=== PATIENT | female | born 1985 | race Caucasian/White ===

== ENCOUNTER → 2016-08-20 | Outpatient (REF) | payer OTHER | LOC: M LAB REF 14:44 | PROVIDERS: ATTEND Physician Assistant | DX: J11.1 Influenza due to unidentified influenza virus with other respiratory manifestations (principal) ==

== ENCOUNTER 2018-11-26 22:29 | Emergency (ER) | payer SELFPAY ==
[~2018-11-26] VITALS: Ht 154.9 cm; Wt 81.8 kg
[2018-11-26] MEDS ORDERED: IBUP80TA PO (22:32)
[2018-11-27 00:02] VITALS: BP 124/78
--- NOTE | 2018-11-27 08:12 | REP ---
Right ankle four views: Comparison is 07/08/2015. There is no fracture or dislocation. There is soft tissue edema laterally. The mortise is symmetric. Mineralization is normal. There are no calcifications or foreign bodies. Impression: Soft tissue edema laterally. No fracture. Electronically Signed by Sean Lozoya MD 11/27/2018 08:04 A
== END 2018-11-27 00:04 | disposition home or self-care (01) ==
LOC: M ED 22:29
DX: S93.401A Sprain of unspecified ligament of right ankle, initial encounter (principal); X58.XXXA Exposure to other specified factors, initial encounter; Y92.89 Other specified places as the place of occurrence of the external cause; Y93.68 Activity, volleyball (beach) (court); Z88.7 Allergy status to serum and vaccine; F17.210 Nicotine dependence, cigarettes, uncomplicated

== ENCOUNTER 2020-05-10 03:34 | Emergency (ER) | payer OTHER, SELFPAY ==
[~2020-05-10] VITALS: Ht 154.9 cm; Wt 89.2 kg
[~2020-05-10 03:34] MED LIST: IBUP80TA PO
[2020-05-10 05:03] LABS: BASO % 0.5 % (0.0-1.0); EOS # 0.1 10^3/uL (0.0-0.5); EOS % 0.6 % (0.0-3.0); HEMATOCRIT 41.4 % (36.0-47.0); HEMOGLOBIN 13.9 g/dl (12.0-15.5); LYMPH # 1.9 10^3/uL (1.5-5.0); LYMPH % 23.4 % (24.0-44.0); MEAN CORPUSCULAR HGB CONC 33.6 g/dl (32.0-36.5); MEAN CORPUSCULAR VOLUME 98.3 fl (80.0-96.0); MONO # 0.5 10^3/uL (0.0-0.8); MONO % 5.9 % (0.0-5.0); NEUTROPHILS # 5.6 10^3/uL (1.5-8.5); NEUTROPHILS % 69.2 % (36.0-66.0); PLATELET COUNT, AUTOMATED 281 10^3/uL (150-450); RED BLOOD COUNT 4.21 10^6/uL (4.00-5.40); WHITE BLOOD COUNT 8.1 10^3/uL (4.0-10.0)
[2020-05-10] MEDS ORDERED: NS 1,000 ML IV ONE (05:15)
[2020-05-10] MEDS ORDERED: ALPRAZolam 0.5 MG TAB PO ONE (05:15)
[2020-05-10 05:26] LABS: ALBUMIN 3.9 GM/DL (3.2-5.2); ALT/SGPT 45 U/L (12-78); BILIRUBIN,TOTAL 0.7 MG/DL (0.2-1.0); BLOOD UREA NITROGEN 10 MG/DL (7-18); CALCIUM LEVEL 8.8 MG/DL (8.5-10.1); CARBON DIOXIDE LEVEL 24 MEQ/L (21-32); CHLORIDE LEVEL 108 MEQ/L (98-107); CREATININE FOR GFR 0.96 MG/DL (0.55-1.30); GLOMERULAR FILTRATION RATE > 60.0 (>60); GLUCOSE, FASTING 99 MG/DL (70-100); POTASSIUM SERUM 3.7 MEQ/L (3.5-5.1); SODIUM LEVEL 139 MEQ/L (136-145); TOTAL PROTEIN 7.2 GM/DL (6.4-8.2)
--- NOTE | 2020-05-10 05:35 | REPVR ---
PROCEDURE INFORMATION: Exam: XR Chest, 1 View Exam date and time: 05/10/2020 5:13 AM Age: 35 years old Clinical indication: Other: Chest tightness TECHNIQUE: Imaging protocol: XR of the chest Views: 1 view. COMPARISON: No relevant prior studies available. FINDINGS: Lungs: Unremarkable. No consolidation. Pleural space: Unremarkable. No pleural effusion. No pneumothorax. Heart/Mediastinum: Unremarkable. No cardiomegaly. Bones/joints: Unremarkable. IMPRESSION: No acute findings. Electronically signed by: Elliott Moreau On 05/10/2020 05:35:54 AM
[2020-05-10 05:41] LABS: APPEARANCE, URINE CLEAR (CLEAR); BACTERIA, URINE AUTO NEGATIVE (NEGATIVE); BILIRUBIN, URINE AUTO NEGATIVE (NEGATIVE); BLOOD, URINE BLOOD 1+ (NEGATIVE); COLOR, URINE STRAW (YELLOW); GLUCOSE, URINE (UA) AUTO NEGATIVE (NEGATIVE); KETONE, URINE AUTO TRACE mg/dL (NEGATIVE); LEUKOCYTE ESTERASE, URINE AUTO NEGATIVE (NEGATIVE); NITRITE, URINE AUTO NEGATIVE (NEGATIVE); PROTEIN, URINE AUTO NEGATIVE (NEGATIVE); RBC, URINE AUTO 2 /HPF (0-3); SPECIFIC GRAVITY URINE AUTO 1.005 (1.002-1.035); SQUAMOUS EPITHELIAL CELL UR AU 0 /HPF (0-6); UROBILINOGEN, URINE AUTO 0.2 mg/dL (0.0-2.0); WBC, URINE AUTO 0 /HPF (0-3)
--- NOTE | 2020-05-10 05:49 | ECGEPIP ---
[facility] - ED Test Date: 2020-05-10 Pat Name: MEG ADEN Department: Room: - Gender: Female Pediatric Medical Assistant: MARKO : 1985 Requested By: DONAL LAY Order Number: [id number] Reading MD: Pedro Wiseman Measurements Intervals [place] Rate: 74 P: 46 LA: 171 QRS: 38 QRSD: 101 T: 21 QT: 421 QTc: 469 Interpretive Statements SINUS RHYTHM POSSIBLE INCOMPLETE RIGHT BUNDLE BRANCH BLOCK POOR R WAVE PROGRESSION NO PRIORS FOR COMPARISON Electronically Signed on 05-10-2020 5:49:15 EST by Pedro Wiseman
[2020-05-10 06:00] LABS: AMPHETAMINES LEVEL URINE NEGATIVE (NEGATIVE); BARBITURATES URINE NEGATIVE (NEGATIVE); BENZODIAZEPINES URINE NEGATIVE (NEGATIVE); CANNABINOIDS URINE NEGATIVE (NEGATIVE); COCAINE METABOLITE URINE NEGATIVE (NEGATIVE); METHADONE URINE NEGATIVE (NEGATIVE); OPIATES URINE NEGATIVE (NEGATIVE); PHENCYCLIDINE URINE NEGATIVE (NEGATIVE)
[2020-05-10] MEDS ORDERED: HYDR-3363 PO (07:09)
[2020-05-10] MEDS ORDERED: IBUP-1022 PO (07:09)
[2020-05-10 14:30] VITALS: BP 136/70
== END 2020-05-10 07:50 | disposition home or self-care (01) ==
LOC: M ED 03:34
DX: F41.0 Panic disorder [episodic paroxysmal anxiety] (principal); R51.9 Headache, unspecified; Z88.7 Allergy status to serum and vaccine; Z91.048 Other nonmedicinal substance allergy status

== ENCOUNTER 2022-04-09 08:08 | Inpatient (IN) | payer OTHER, SELFPAY ==
[~2022-04-09] VITALS: Ht 154.9 cm; Wt 85.2 kg
[~2022-04-09 08:08] MED LIST changes: +HYDR-3363 PO; +IBUP-1022 PO
[2022-04-09 08:46] LABS: BASO # 0.1 10^3/uL (0.0-0.2); BASO % 0.5 % (0.0-1.0); EOS # 0.2 10^3/uL (0.0-0.5); EOS % 1.7 % (0.0-3.0); HEMATOCRIT 42.4 % (36.0-47.0); HEMOGLOBIN 14.6 g/dl (12.0-15.5); LYMPH # 1.3 10^3/uL (1.5-5.0); LYMPH % 12.5 % (24.0-44.0); MEAN CORPUSCULAR HEMOGLOBIN 36.5 pg (27.0-33.0); MEAN CORPUSCULAR HGB CONC 34.4 g/dl (32.0-36.5); MONO # 0.7 10^3/uL (0.0-0.8); MONO % 6.6 % (2.0-8.0); NEUTROPHILS # 8.1 10^3/uL (1.5-8.5); NEUTROPHILS % 78.3 % (36.0-66.0); PLATELET COUNT, AUTOMATED 122 10^3/uL (150-450); WHITE BLOOD COUNT 10.3 10^3/uL (4.0-10.0)
[2022-04-09 09:12] LABS: ALBUMIN 4.1 GM/DL (3.2-5.2); ALT/SGPT 135 U/L (12-78); BILIRUBIN,DIRECT 0.7 MG/DL (0.0-0.2); BILIRUBIN,TOTAL 1.8 MG/DL (0.2-1.0); BLOOD UREA NITROGEN 8 MG/DL (7-18); CALCIUM LEVEL 9.3 MG/DL (8.5-10.1); CARBON DIOXIDE LEVEL 21 MEQ/L (21-32); CHLORIDE LEVEL 95 MEQ/L (98-107); CREATININE FOR GFR 0.99 MG/DL (0.55-1.30); GLOMERULAR FILTRATION RATE > 60.0 (>60); GLUCOSE, FASTING 100 MG/DL (70-100); POTASSIUM SERUM 3.5 MEQ/L (3.5-5.1); SODIUM LEVEL 131 MEQ/L (136-145)
[2022-04-09] MEDS ORDERED: ONDANSETRON 4MG ORAL DISINTEGRATING TAB PO ONE (10:55)
[2022-04-09] MEDS ORDERED: ACETAMINOPHEN 500 MG TAB PO ONE ×2 (10:55→11:35)
[2022-04-09] MEDS ORDERED: NS 1,000 ML IV ONE (11:15)
[2022-04-09] MEDS ORDERED: ONDANSETRON 4MG 2ML VIAL IV ONE (11:15)
[2022-04-09 12:13] LABS: HCG, SERUM QUALITATIVE NEGATIVE (NEGATIVE)
[2022-04-09 12:14] LABS: CK-MB VALUE MASS < 1.0 NG/ML (<3.6)
[2022-04-09] MEDS ORDERED: KETOROLAC 30 MG/ML 1ML VIAL IV ONE (12:55)
[2022-04-09 13:24] LABS: LIPASE 13519 U/L (73-393)
[2022-04-09] MEDS ORDERED: NS 1,000 ML IV SCH ×2 (14:00→17:00)
[2022-04-09] MEDS ORDERED: MORPHINE 4 MG/ML 1ML VIAL/SYRINGE IV PRN (14:00)
[2022-04-09 14:02] LABS: RSV AMPLIFICATION NEGATIVE (NEGATIVE)
[2022-04-09] MEDS ORDERED: PANTOPRAZOLE 40MG VIAL IV ONE (14:40)
[2022-04-09] MEDS ORDERED: GLUCOSE 4GM CHEW TABLET PO PRN (14:40)
[2022-04-09] MEDS ORDERED: NS 2,000 ML IV ONE (14:40)
[2022-04-09] MEDS ORDERED: DEXTROSE 50% 50 ML SYRINGE IV PRN (14:40)
[2022-04-09] MEDS ORDERED: GLUCAGON INJ 1MG VIAL SC PRN (14:40)
[2022-04-09] MEDS ORDERED: MOM 30ML SUSPENSION UDC PO PRN (14:45)
[2022-04-09] MEDS ORDERED: SENOKOT S TAB PO PRN (14:45)
[2022-04-09] MEDS ORDERED: BISACODYL 10 MG SUPP PR PRN (14:45)
[2022-04-09] MEDS ORDERED: HOME MED LIST COMPLETE! XX SCH (14:55)
[2022-04-09 15:23] LABS: CHOLESTEROL LEVEL 237 MG/DL (<200); CHOLESTEROL RISK RATIO 1.549 (<5); HDL CHOLESTEROL 153 MG/DL (>40); NON-HDL-C 84 MG/DL; TRIGLYCERIDES LEVEL 84 MG/DL (<150)
[2022-04-09 15:27] LABS: LDL CHOLESTEROL 67.2 MG/DL (<100)
[2022-04-09 15:29] LABS: MONO SCRN NEGATIVE (NEGATIVE)
[2022-04-09] MEDS: ENOXAPARIN 40MG/0.4ML SYRINGE (J1650 PER 10MG) SC SCH (15:40)
[2022-04-09 15:51] LABS: HEPATITIS B SURFACE ANTIGEN NEGATIVE (NEGATIVE)
[2022-04-09 16:15] VITALS: BP 129/89
[2022-04-09 16:19] LABS: HEPATITIS B CORE ANTIBODY IGM NEGATIVE (NEGATIVE); HEPATITIS C VIRUS ABY INDEX < 0.0 INDEX (<0.8)
[2022-04-09 16:39] LABS: CPK CREATINE PHOSPHOKINASE 194 U/L (26-192); MB/CK RELATIVE INDEX 0.51 (< OR =4)
[2022-04-09] MEDS ORDERED: PROMETHAZINE 25MG/ML 1ML VIAL IV ONE ×2 (16:40→21:00)
[2022-04-09] MEDS ORDERED: HYDROMORPHONE HCL 0.5 MG/ 0.5 ML SYRINGE (J1170 PER 1) IV ONE ×2 (17:20→22:00)
[2022-04-09] MEDS: ONDANSETRON 4MG 2ML VIAL IV PRN (17:32)
[2022-04-09] MEDS ORDERED: KETOROLAC 30 MG/ML 1ML VIAL IV SCH ×2 (18:00→19:00)
[2022-04-09] MEDS: KETOROLAC 30 MG/ML 1ML VIAL IV SCH (18:29)
[2022-04-09] MEDS ORDERED: KETOROLAC 30 MG/ML 1ML VIAL IV PRN (19:00)
[2022-04-09] MEDS ORDERED: DOCUSATE SODIUM 100MG CAPSULE PO SCH (21:00)
[2022-04-09 21:21] VITALS: BP 135/90
[2022-04-09] MEDS: D5W/0.45% SODIUM CHLORIDE 1,000 ML IV SCH (22:23)
[2022-04-09 22:44] LABS: AMPHETAMINES LEVEL URINE NEGATIVE (NEGATIVE); BARBITURATES URINE NEGATIVE (NEGATIVE); BENZODIAZEPINES URINE NEGATIVE (NEGATIVE); CANNABINOIDS URINE NEGATIVE (NEGATIVE); COCAINE METABOLITE URINE NEGATIVE (NEGATIVE); METHADONE URINE NEGATIVE (NEGATIVE); OPIATES URINE NEGATIVE (NEGATIVE); PHENCYCLIDINE URINE NEGATIVE (NEGATIVE)
[2022-04-10] MEDS: ONDANSETRON 4MG 2ML VIAL IV PRN (01:54)
[2022-04-10] MEDS: KETOROLAC 30 MG/ML 1ML VIAL IV SCH ×4 (02:04→18:05)
[2022-04-10] MEDS ORDERED: HYDROMORPHONE HCL 0.5 MG/ 0.5 ML SYRINGE (J1170 PER 1) IV ONE (03:00)
[2022-04-10 05:39] VITALS: BP 131/97
[2022-04-10 07:26] LABS: HEMATOCRIT 39.4 % (36.0-47.0)
[2022-04-10 07:30] LABS: HEMOGLOBIN 13.7 g/dl (12.0-15.5); MEAN CORPUSCULAR HEMOGLOBIN 36.5 pg (27.0-33.0); MEAN CORPUSCULAR HGB CONC 34.3 g/dl (32.0-36.5); MEAN CORPUSCULAR VOLUME 106.7 fl (80.0-96.0); RED BLOOD COUNT 3.75 10^6/uL (4.00-5.40); WHITE BLOOD COUNT 9.4 10^3/uL (4.0-10.0)
[2022-04-10 08:03] LABS: ALBUMIN 2.9 GM/DL (3.2-5.2); BILIRUBIN,TOTAL 1.2 MG/DL (0.2-1.0); CALCIUM LEVEL 7.2 MG/DL (8.5-10.1); CREATININE FOR GFR 1.14 MG/DL (0.55-1.30); GLOMERULAR FILTRATION RATE 57.1 (>60); POTASSIUM SERUM 4.2 MEQ/L (3.5-5.1); TOTAL PROTEIN 5.7 GM/DL (6.4-8.2)
[2022-04-10 08:32] LABS: FOLATE 4.4 NG/ML (>5.4)
[2022-04-10] MEDS: PANTOPRAZOLE 40MG VIAL IV SCH (09:00)
[2022-04-10] MEDS ORDERED: CALCIUM GLUCONATE 1,000 MG in D5W MINI-BAG PLUS 100 ML IV ONE (09:00)
[2022-04-10] MEDS: ENOXAPARIN 40MG/0.4ML SYRINGE (J1650 PER 10MG) SC SCH (09:00)
[2022-04-10] MEDS: D5W/0.45% SODIUM CHLORIDE 1,000 ML IV SCH ×2 (09:01→19:23)
[2022-04-10] MEDS ORDERED: PROMETHAZINE 25MG/ML 1ML VIAL IV PRN (11:20)
[2022-04-10 14:00] VITALS: BP 128/94
[2022-04-10 19:43] VITALS: BP 128/93
[2022-04-10] MEDS: HYDROMORPHONE HCL 0.5 MG/ 0.5 ML SYRINGE (J1170 PER 1) IV PRN (22:24)
[2022-04-11] MEDS: KETOROLAC 30 MG/ML 1ML VIAL IV SCH ×4 (00:56→22:25)
[2022-04-11 05:02] VITALS: BP 127/83
[2022-04-11] MEDS: D5W/0.45% SODIUM CHLORIDE 1,000 ML IV SCH (06:13)
[2022-04-11 07:22] LABS: HEMATOCRIT 36.1 % (36.0-47.0); HEMOGLOBIN 12.3 g/dl (12.0-15.5); MEAN CORPUSCULAR HEMOGLOBIN 36.2 pg (27.0-33.0); MEAN CORPUSCULAR HGB CONC 34.1 g/dl (32.0-36.5); MEAN CORPUSCULAR VOLUME 106.2 fl (80.0-96.0); WHITE BLOOD COUNT 8.7 10^3/uL (4.0-10.0)
[2022-04-11 07:23] LABS: PLATELET COUNT, AUTOMATED 83 10^3/uL (150-450)
[2022-04-11 08:05] LABS: ALBUMIN 2.6 GM/DL (3.2-5.2); ALT/SGPT 52 U/L (12-78); BLOOD UREA NITROGEN 7 MG/DL (7-18); CALCIUM LEVEL 6.9 MG/DL (8.5-10.1); CARBON DIOXIDE LEVEL 22 MEQ/L (21-32); CHLORIDE LEVEL 103 MEQ/L (98-107); CREATININE FOR GFR 0.76 MG/DL (0.55-1.30); GLOMERULAR FILTRATION RATE > 60.0 (>60); GLUCOSE, FASTING 140 MG/DL (70-100); POTASSIUM SERUM 3.1 MEQ/L (3.5-5.1); SODIUM LEVEL 134 MEQ/L (136-145); TOTAL PROTEIN 5.4 GM/DL (6.4-8.2)
[2022-04-11] MEDS ORDERED: POTASSIUM CHLORIDE 10MEQ SR TABLET PO ONE (08:10)
[2022-04-11] MEDS ORDERED: CALCIUM GLUCONATE 1,000 MG in D5W MINI-BAG PLUS 100 ML IV ONE ×2 (08:15→11:15)
[2022-04-11 08:32] VITALS: BP 130/85
[2022-04-11] MEDS: PANTOPRAZOLE 40MG VIAL IV SCH (08:55)
[2022-04-11] MEDS: ACETAMINOPHEN TAB 650MG DOSE (2X325MG) PO PRN (08:57)
[2022-04-11 09:11] LABS: ANTINUCLEAR ANTIBODIES DIRECT Negative (Negative)
[2022-04-11] MEDS: LR 1,000 ML IV SCH ×2 (09:14→16:30)
[2022-04-11] MEDS: HYDROMORPHONE HCL 0.5 MG/ 0.5 ML SYRINGE (J1170 PER 1) IV PRN ×2 (09:38→18:10)
[2022-04-11 09:41] LABS: LIPASE 2795 U/L (73-393)
[2022-04-11 14:00] VITALS: BP 119/78
[2022-04-11 15:57] LABS: BLOOD UREA NITROGEN 7 MG/DL (7-18); CALCIUM LEVEL 7.8 MG/DL (8.5-10.1); CARBON DIOXIDE LEVEL 21 MEQ/L (21-32); CHLORIDE LEVEL 103 MEQ/L (98-107); CREATININE FOR GFR 0.79 MG/DL (0.55-1.30); GLOMERULAR FILTRATION RATE > 60.0 (>60); GLUCOSE, FASTING 121 MG/DL (70-100); POTASSIUM SERUM 3.5 MEQ/L (3.5-5.1); SODIUM LEVEL 133 MEQ/L (136-145)
[2022-04-11 19:18] VITALS: BP 126/89
[2022-04-12] MEDS: LR 1,000 ML IV SCH ×3 (00:18→11:26)
[2022-04-12] MEDS ORDERED: SIMETHICONE 80MG CHEW TAB PO ONE (01:00)
[2022-04-12 05:10] VITALS: BP 144/102
[2022-04-12] MEDS: KETOROLAC 30 MG/ML 1ML VIAL IV SCH (06:01)
[2022-04-12 06:07] LABS: HEMATOCRIT 34.6 % (36.0-47.0); HEMOGLOBIN 11.9 g/dl (12.0-15.5); MEAN CORPUSCULAR HEMOGLOBIN 36.4 pg (27.0-33.0); MEAN CORPUSCULAR HGB CONC 34.4 g/dl (32.0-36.5); MEAN CORPUSCULAR VOLUME 105.8 fl (80.0-96.0); PLATELET COUNT, AUTOMATED 108 10^3/uL (150-450); RED BLOOD COUNT 3.27 10^6/uL (4.00-5.40); WHITE BLOOD COUNT 9.7 10^3/uL (4.0-10.0)
[2022-04-12 06:57] VITALS: BP 137/98
[2022-04-12 07:01] LABS: ALBUMIN 2.5 GM/DL (3.2-5.2); ALT/SGPT 44 U/L (12-78); BLOOD UREA NITROGEN 6 MG/DL (7-18); CALCIUM LEVEL 7.2 MG/DL (8.5-10.1); CARBON DIOXIDE LEVEL 23 MEQ/L (21-32); CHLORIDE LEVEL 104 MEQ/L (98-107); CREATININE FOR GFR 0.72 MG/DL (0.55-1.30); GLOMERULAR FILTRATION RATE > 60.0 (>60); GLUCOSE, FASTING 113 MG/DL (70-100); LIPASE 1207 U/L (73-393); POTASSIUM SERUM 3.3 MEQ/L (3.5-5.1); SODIUM LEVEL 135 MEQ/L (136-145); TOTAL PROTEIN 5.6 GM/DL (6.4-8.2)
[2022-04-12 07:35] VITALS: BP 138/90
[2022-04-12] MEDS ORDERED: CALCIUM GLUCONATE 1,000 MG in D5W MINI-BAG PLUS 100 ML IV ONE (08:00)
[2022-04-12] MEDS ORDERED: POTASSIUM CHLORIDE 10MEQ SR TABLET PO ONE (08:00)
[2022-04-12] MEDS: ACETAMINOPHEN TAB 650MG DOSE (2X325MG) PO PRN (08:23)
[2022-04-12] MEDS: PANTOPRAZOLE 40MG VIAL IV SCH (08:24)
[2022-04-12] MEDS ORDERED: SIMETHICONE 80MG CHEW TAB PO PRN (09:10)
[2022-04-12] MEDS ORDERED: KETOROLAC 30 MG/ML 1ML VIAL IV PRN (09:10)
[2022-04-12 13:25] VITALS: BP 138/96
[2022-04-12] MEDS ORDERED: PANT40TA29 PO (13:43)
[2022-04-12] MEDS ORDERED: OXYC-517 PO (13:43)
[2022-04-12] MEDS ORDERED: ACET-897 PO (13:43)
[2022-04-12] MEDS ORDERED: SIME80TA16 PO (13:43)
[2022-04-12] MEDS ORDERED: IBUP1TAB6 PO (13:43)
[2022-04-13 01:50] LABS: PLATELET COUNT, AUTOMATED 93 10^3/uL (150-450)
== END 2022-04-12 14:50 | disposition home or self-care (01) | DRG 282 ==
LOC: M ED 08:08 → M ED INP 13:59 → ENRESERV 15:29 → M MS5PR 16:00
PROVIDERS: ADMIT General Practice; ATTEND Internal Medicine Nephrology
DX: K85.90 Acute pancreatitis without necrosis or infection, unspecified (principal); D69.6 Thrombocytopenia, unspecified; K76.0 Fatty (change of) liver, not elsewhere classified; R16.1 Splenomegaly, not elsewhere classified; E83.51 Hypocalcemia; F41.9 Anxiety disorder, unspecified; K64.9 Unspecified hemorrhoids; F17.200 Nicotine dependence, unspecified, uncomplicated; Z88.7 Allergy status to serum and vaccine; Z91.048 Other nonmedicinal substance allergy status; E66.9 Obesity, unspecified; R00.0 Tachycardia, unspecified; E87.6 Hypokalemia; Z68.35 Body mass index [BMI] 35.0-35.9, adult